=== PATIENT | male | born 1965 | race Caucasian/White ===

== ENCOUNTER 2016-11-02 19:00 | Inpatient (IN) ==
[2016-11-02] MEDS ORDERED: ONDANSETRON 4 MG/2 ML INJECTION IVP PRN (20:05)
[2016-11-02] MEDS ORDERED: BISACODYL 10 MG SUPPOSITORY RECTALLY PRN (20:05)
[2016-11-02] MEDS ORDERED: NICARDIPINE 50 MG in NS 500ml 500 ML IV PRN (20:14)
--- NOTE | 2016-11-02 20:19 | History & Physical Report ---
History of Present Illness Date: 11/02/16 Chief complaint: " feeling crapy for the past 2 weeks HPI: The pt is a 51 you with a long history of hypertension who has been feeling fatigued and weak. He has been having a dry cough for the past 3 days. Him and his if planning on going to [facility] for the next two weeks so his dragged him to his PCP, Dr. Cao today. In the office his BP was critically high with a systolic BP of >240 he was then admitted to the CCU for evaluation and treatment. Review of Systems - Constitutional Constitutional: Present: as per HPI, fatigue, malaise, night sweats. Absent: fever(s), headache(s) - EENMT Eyes: Absent: change in vision Mouth/Throat: Present: change in taste. Absent: dry mouth - Cardiovascular Cardiovascular: Present: dyspnea on exertion. Absent: chest pain, palpitations , syncope, orthopnea, edema - Respiratory Respiratory: Present: cough, dyspnea. Absent: hemoptysis, dyspnea on exertion, wheezing - Gastrointestinal Gastrointestinal: Absent: abdominal pain, change in bowel habits - Integumentary/Breasts Integumentary: Present: as per HPI - Neurological Neurological: Present: as per HPI - Psychiatric Psychiatric: Present: as per HPI PFSH Patient Stated Medical History Hypertension Yes Myocardial Infarction Yes: possible [place] 2011 Bronchitis Yes Diabetes Mellitus Type 2 Yes doesn't ever check his blood sugars, and never checks his BP at home. Does take several dietary supplements. last gb A1C was 7.2 in 2016 Surgical History: Tibial fracture and ankle with fixation - Social History Smoking status: Former smoker Alcohol intake: current Alcohol intake frequency: a few times a month Housing: house Household members: spouse service: No Current occupational status: employed Medications Home Medications Medication Instructions Recorded Confirmed Type Amlodipine Besylate 5 mg PO DAILY #0 tab 12/25/15 History BLACK CUMIN 1 cap PO DAILY #0 12/25/15 History [place] 1 cap PO DAILY #0 12/25/15 History Cinnamon Bark [Cinnamon] 1 cap PO DAILY #0 12/25/15 History FUNU KHMER 1 cap PO DAILY #0 12/25/15 History Flavoring Agent [Grapefruit] 1 unit PO DAILY #0 12/25/15 History GNC TESTOSTERONE 1 cap PO DAILY #0 12/25/15 History HGH SPRAY 1 unit PO ASD #0 12/25/15 History OAT FIBER 1 cap PO DAILY #0 12/25/15 History Oregano Oil [Oil of Oregano] 1 cap PO DAILY #0 12/25/15 History TRACE MINERAL DROPS 1 drop PO ASD #0 12/25/15 History Turmeric/Turmeric Root Extract 1 cap PO DAILY #0 12/25/15 History [Turmeric 450-50 mg Capsule] Allergies Allergy/AdvReac Type Severity Reaction Status Date / Time Penicillins Allergy Unknown Verified 11/02/16 19:32 Exam Height: 1.83 m Weight: 109.3 kg Body Mass Index: 32.6 - Constitutional Present: no acute distress - Routine HEENT Exam Head: Present: normocephalic - Routine Neck Exam Present: supple - Routine Respiratory Exam Present: CTA bilaterally - Routine Cardiovascular Exam Present: RRR, no murmur - Routine Abdominal Exam Present: soft - Routine Extremities Exam Present: edema, no edema, non tender - Routine Skin Exam Present: intact. Absent: rash - Routine Neurological Exam Present: alert, oriented X3 Assessment and Plan (1) Hypertensive urgency Current visit: Yes Status: Acute 11/02/16 20:24 Will start on cardene drip, admit to the ICU, close monitoring, cardiology consulted. checking labs now since none are available. low salt diet, telemetry , echo in am. (2) Diabetes Current visit: Yes Status: Acute 11/02/16 20:25 blood sugars presently is 340, will start on insulin SS, checking hgb A1C, accuchecks QAC & QHS, dabetes education, ADA diet. Hospital Course Summary Disclaimer: The visit summary below is not to be considered part of the above Progress Note.
[2016-11-02] MEDS ORDERED: DEXTROSE 50% SYRINGE 50ml (1 AMP) IVP PRN (20:27)
[2016-11-02] MEDS: ENOXAPARIN 40 MG/0.4 ML INJECTION SQ SCH (20:46)
[2016-11-02] MEDS: INSULIN ASPART 100unit/ml INJECTION SQ PRN (20:47)
[2016-11-02] MEDS ORDERED: NITROGLYCERIN 0.4 MG SUBLINGUAL TABLET SL PRN (21:07)
[2016-11-03] MEDS: INSULIN ASPART 100unit/ml INJECTION SQ PRN ×3 (06:31→21:58)
--- NOTE | 2016-11-03 08:14 | XRay Report ---
Indication: HTN, cough PROCEDURE: XR chest 1V: Encounter: Initial Comparison: None FINDINGS: The lungs are clear. There is no abnormal airspace opacity, pleural effusion or pneumothorax identified. The heart size, pulmonary vasculature and mediastinum are within normal limits. No significant skeletal abnormality is seen. IMPRESSION: No acute cardiopulmonary abnormality. .
[2016-11-03] MEDS: ENOXAPARIN 40 MG/0.4 ML INJECTION SQ SCH (09:15)
--- NOTE | 2016-11-03 10:31 | Cardiology Consult Note ---
History of Present Illness Consult date: 11/02/16 <JuanMarly 11/03/16 10:42> Requesting physician: Sylwia French <JuanMarly 11/03/16 10:42> Consult reason: hypertension <Marly Martinez 11/03/16 10:42> Chief complaint: feeling crappy the last 2 weeks <Juan,Amy Marquita 11/03/16 11 :32> History of present illness: William is a 51 year old male who is known to Dr. Hayward with a history of hypertension, HLD, DM who has been feeling fatigued and weak. He has been having a dry cough for the past 3 days. He and his if planning on going to [place] for the next two weeks so he saw his PCP, Dr. Luna and in the office his BP was critically high with a systolic BP of > 240. He was then admitted to the CCU for evaluation and treatment. <Marly Martinez 11/03/16 10:42> Review of Systems - Constitutional Constitutional: Present: as per HPI, fatigue, malaise, night sweats. Absent: fever(s), headache(s) <JuanMarly newby Marquita 11/03/16 10:42> - EENMT Eyes: Absent: change in vision <JuanMarly newby Marquita 11/03/16 10:42> Mouth/Throat: Present: change in taste. Absent: dry mouth <JuanMarly newby Marquita 11/03/16 10:42> - Cardiovascular Cardiovascular: Present: dyspnea on exertion. Absent: chest pain, palpitations , syncope, orthopnea, edema <Marly Martinez Marquita 11/03/16 10:42> - Respiratory Respiratory: Present: cough, dyspnea. Absent: hemoptysis, dyspnea on exertion, wheezing <Marly Martinez Marquita 11/03/16 10:42> - Gastrointestinal Gastrointestinal: Absent: abdominal pain, change in bowel habits <JuanMarly newby Marquita 11/03/16 10:42> - Integumentary/Breasts Integumentary: Present: as per HPI <Marly Martinez Marquita 11/03/16 10:42> - Neurological Neurological: Present: as per HPI <Marly Martinez Marquita 11/03/16 10:42> - Psychiatric Psychiatric: Present: as per HPI <Marly Martinez Marquita - 11/03/16 10:42> [facility] Patient Stated Medical History Hypertension Yes Myocardial Infarction No Bronchitis Yes Diabetes Mellitus Type 2 Yes <Wale Hayward - 11/05/16 17:19> Patient Stated Medical History Hypertension Yes Myocardial Infarction Yes: possible [place] 2011 Bronchitis Yes Diabetes Mellitus Type 2 Yes Hyperlipidemia Yes <JuanMarly henry 11/03/16 11:32> Surgical History: Tibial fracture and ankle with fixation <JuanMarly Marquita 10:42> Family History: Brother - CVA, DM Father - CVA <Marly Martinez 11/03/16 11:32> - Social History Smoking status: Former smoker <JuanMarly Marquita 11/03/16 10:42> Alcohol intake frequency: a few times a month <Marly Martinez Marquita 11/03/16 11:32 > Household members: spouse <JuanMarly Marquita 11/03/16 11:32> Current occupational status: employed <JuanMarly Marquita 11/03/16 11:32> Medications Home Medications Medication Instructions Recorded Confirmed Type BLACK CUMIN 1 cap PO DAILY #0 12/25/15 11/02/16 History [place] 1 cap PO DAILY #0 12/25/15 11/02/16 History Cinnamon Bark [Cinnamon] 1 cap PO DAILY #0 12/25/15 11/02/16 History Flavoring Agent [Grapefruit] 1 unit PO DAILY #0 12/25/15 11/02/16 History OAT FIBER 1 cap PO DAILY #0 12/25/15 11/02/16 History Oregano Oil [Oil of Oregano] 1 cap PO DAILY #0 12/25/15 11/02/16 History TRACE MINERAL DROPS 1 drop PO DAILY #0 12/25/15 11/02/16 History Turmeric/Turmeric Root Extract 1 cap PO DAILY #0 12/25/15 11/02/16 History [Turmeric 450-50 mg Capsule] Co Q-10 PO DAILY 11/02/16 History Lecithin/Pyridoxine/Kelp 1 each PO DAILY 11/02/16 11/02/16 History [Ngxz-[id number]-Gve B-6 Capsule] [place]-3 Fatty Acids [[place]-3] 1,000 mg PO DAILY 11/02/16 11/02/16 History Psyllium Husk PO DAILY 11/02/16 History Beet Root 605 mg PO QDRHS 11/03/16 History Dwt-Krw-Kude 1 tab PO DAILY 11/03/16 History [place] 450 mg PO DAILY 11/03/16 11/03/16 History Cinnamon Bark/Chromium/Ala 1 each PO DAILY 11/03/16 11/03/16 History [Cinnamon Alpha Lipoic Acid Cap] Fenugreek Seed Extract [Fenugreek] 500 mg PO DAILY 11/03/16 11/03/16 History Grape Fruit 1,000 mg PO DAILY 11/03/16 History Gtf Chromium 1 cap PO DAILY 11/03/16 History Kelp 1 tab PO DAILY 11/03/16 History Manganese 15 mg PO DAILY 11/03/16 History Mecobalamin [B-12] 1,000 mcg SL DAILY 11/03/16 11/03/16 History Oat Bran 750 mg PO DAILY 11/03/16 History Oil Of Oregano 150 mg PO DAILY 11/03/16 History Para-Aminobenzioc Acid 500 mg PO DAILY 11/03/16 History Psyllium Husk [Psyllium Fiber] 500 mg PO DAILY 11/03/16 11/03/16 History Pumpkin Seed Oil 1,000 mg PO DAILY 11/03/16 History Tumeric 300 mg PO DAILY 11/03/16 History Ubidecarenone/Vit E Acet [Co Q-10 100 mg PO QDRHS 11/03/16 11/03/16 History 100 mg Softgel] Ubiquinol 100 mg PO DAILY 11/03/16 11/03/16 History <Wale Hayward - 11/05/16 17:19> Allergies Allergy/AdvReac Type Severity Reaction Status Date / Time Penicillins Allergy Unknown Verified 11/02/16 19:32 <Wale Hayward - 11/05/16 17:19> Exam Vital signs: Temperature 96.6 F L 11/04/16 16:58 Pulse Rate 86 11/04/16 18:52 Respiratory Rate 38 H 11/04/16 18:52 Blood Pressure 143/89 H 11/04/16 19:16 Pulse Oximetry 97 11/04/16 18:52 Oxygen Delivery Method Room Air <Wale Hawyard - 11/05/16 17:19> Temperature 98.5 F 11/03/16 08:09 Pulse Rate 78 11/03/16 08:00 Respiratory Rate 25 H 11/03/16 08:00 Blood Pressure 179/111 H 11/03/16 08:00 Pulse Oximetry 93 11/03/16 08:00 Oxygen Delivery Method Room Air <Marly Martinez 11/03/16 10:42> - Constitutional no acute distress, well nourished <Marly Martinez 11/03/16 11:32> - Routine HEENT Exam ENT: Present: mucous membranes moist <Marly Martinez 11/03/16 11:32> - Routine Neck Exam Absent: JVD, carotid bruit <Marly Martinez 11/03/16 11:32> - Routine Chest/Breast/Axilla Exam Chest wall: Absent: tenderness <Marly Martinez [facility] 11/03/16 11:32> - Routine Respiratory Exam Present: CTA bilaterally. Absent: rales, wheezes <Marly Martinez [facility] 11/03/16 11:32> - Routine Cardiovascular Exam Present: RRR. Absent: JVD <Marly Martinez 11/03/16 11:32> - Routine Abdominal Exam Present: soft, non tender <Marly Martinez 11/03/16 11:32> - Routine Skin Exam Present: intact <Marly Martinez [facility] 11/03/16 11:32> - Routine Neurological Exam Present: alert, oriented X3 <Marly Martinez [facility] 11/03/16 11:32> - Routine Psychiatric Exam Present: normal affect, normal thought process <Marly Martinez [facility] 11/03/16 11: 32> Results 11/02/16 20:24 11/04/16 04:25 <Wale Hayward - 11/05/16 17:19> Cardiac Enzymes 11/02/16 11/03/16 11/03/16 Range/Units 20:20 01:40 07:44 AST 19 (17-59) U/L Troponin I 0.056 0.061 0.086 (0-0.12) ng/ml CBC 11/02/16 Range/Units 20:24 WBC 6.8 (4.5-11.0) T/MM3 RBC 5.63 (4.50-5.90) M/MM3 Hgb 16.0 (13.5-17.5) GM/DL Hct 47.2 (41-53) % Plt Count 199 (130-400) T/MM3 Neut # 4.2 (1.8-7.7) T/MM3 Lymph # 2.0 (1-4.8) T/MM3 [place] # 0.5 (0-0.8) T/MM3 Eos # 0.1 (0-0.5) T/MM3 Baso # 0.0 (0-0.2) T/MM3 Comprehensive Metabolic Panel 11/02/16 11/03/16 Range/Units 20:24 01:40 Sodium 139 143 (134-144) MEQ/L Potassium 4.5 3.3 L D (3.6-5) MEQ/L Chloride 101 103 (98-107) MEQ/L Carbon Dioxide 23 25 (22-30) MEQ/L BUN 21.0 H 17.0 (9-20) MG/DL Creatinine 1.1 0.9 D (0.8-1.5) MG/DL Glucose 419 H 121 H (75-110) MG/DL Calcium 9.3 8.9 (8.4-10.2) MG/DL AST 19 (17-59) U/L ALT 49 (21-72) U/L Alkaline Phosphatase 100 (38-126) U/L Total Protein 6.8 (6.3-8.2) G/DL Albumin 4.0 (3.5-5.0) G/DL Intake and Output 11/02/16 11/03/16 11/03/16 22:59 06:59 14:59 Intake Total 303.333 / 303.333 897.916 / 897.916 Output Total 1225 / 1225 1850 / 1850 Balance -921.667 / -921.667 -952.084 / -952.084 Intake: IV 63.333 / 63.333 247.916 / 247.916 Cardene IV 50 mg In 63.333 / 63.333 247.916 / 247.916 25 / 25 Normal Saline 500 ml @ 5 MG/HR 50 mls/hr IV .Q10H PRN Rx#:[id number] Oral 240 / 240 650 / 650 Output: Urine 1225 / 1225 1850 / 1850 Other: # Voids 0 0 Weight 240 lb 15.444 oz 263 lb 7.238 oz Patient Weight 11/04/16 06:59 Weight 263 lb 7.238 oz Laboratory Results - last 48 hr 11/02/16 11/02/16 11/02/16 20:16 20:20 20:24 WBC 6.8 RBC 5.63 Hgb 16.0 Hct 47.2 MCV 83.8 MCH 28.4 MCHC 33.9 RDW Std Deviation 44.3 Plt Count 199 MPV 10.7 Immature Gran % (Auto) 0.1 Neut % (Auto) 61.5 Lymph % (Auto) 29.3 [place] % (Auto) 6.7 Eos % (Auto) 1.8 Baso % (Auto) 0.6 Neut # 4.2 Lymph # 2.0 [place] # 0.5 Eos # 0.1 Baso # 0.0 Abs Immat Gran (auto) 0.01 INR Turbidity Sodium Potassium Chloride Carbon Dioxide Anion Gap BUN Creatinine GFR Calculation BUN/Creatinine Ratio Glucose Glucometer 347 Hemoglobin A1c Calculated Osmolality Calcium Magnesium Total Bilirubin Icterus Index AST ALT Alkaline Phosphatase Troponin I 0.056 Total Protein Albumin Globulin Albumin/Globulin Ratio TSH Specimen Hemolysis < 15 11/02/16 11/03/16 11/03/16 20:24 01:40 06:24 WBC RBC Hgb Hct MCV MCH MCHC RDW Std Deviation Plt Count MPV Immature Gran % (Auto) Neut % (Auto) Lymph % (Auto) [place] % (Auto) Eos % (Auto) Baso % (Auto) Neut # Lymph # [place] # Eos # Baso # Abs Immat Gran (auto) INR Turbidity < 20 < 20 Sodium 139 143 Potassium 4.5 3.3 L D Chloride 101 103 Carbon Dioxide 23 25 Anion Gap 15 15 BUN 21.0 H 17.0 Creatinine 1.1 0.9 D GFR Calculation 70 89 BUN/Creatinine Ratio 19 19 Glucose 419 H 121 H Glucometer 153 Hemoglobin A1c Calculated Osmolality 289 H 278 Calcium 9.3 8.9 Magnesium 2.0 Total Bilirubin 0.80 Icterus Index < 2 < 2 AST 19 ALT 49 Alkaline Phosphatase 100 Troponin I 0.061 Total Protein 6.8 Albumin 4.0 Globulin 2.8 Albumin/Globulin Ratio 1.4 TSH 2.20 Specimen Hemolysis < 15 < 15 11/03/16 11/03/16 11/03/16 07:44 07:44 10:31 WBC RBC Hgb Hct MCV MCH MCHC RDW Std Deviation Plt Count MPV Immature Gran % (Auto) Neut % (Auto) Lymph % (Auto) [place] % (Auto) Eos % (Auto) Baso % (Auto) Neut # Lymph # [place] # Eos # Baso # Abs Immat Gran (auto) INR 1.21 Turbidity Sodium Potassium Chloride Carbon Dioxide Anion Gap BUN Creatinine GFR Calculation BUN/Creatinine Ratio Glucose Glucometer 132 Hemoglobin A1c 10.4 H Calculated Osmolality Calcium Magnesium Total Bilirubin Icterus Index AST ALT Alkaline Phosphatase Troponin I 0.086 Total Protein Albumin Globulin Albumin/Globulin Ratio TSH Specimen Hemolysis < 15 <Marly Martinez - 11/03/16 11:32> - Imaging and Cardiology Echo: pending <Marly Martinez - 11/03/16 11:32> EKG results: image reviewed <Marly Martinez - 11/03/16 11:32> Imaging & Cardiology Narrative: Date of Exam: 11/03/16 Type of Exam(s): US echo doppler complete DATE OF PROCEDURE November 03, [address] Mainor Luna This is a two-dimensional echo with spectral Doppler, color-flow and M-mode. It was obtained in a patient with hypertensive urgency. Left atrial dimension is normal. Left ventricle end-diastolic dimension is normal. Left ventricle wall thickness is at the upper limits of normal. LV systolic function is at the lower limits of normal with ejection fraction of about 50-55%. Right atrium is normal. Right ventricle is normal. Aortic root dimension is normal. Mitral valve is morphologically normal with mild mitral regurgitation. Aortic valve appears to be normal. Tricuspid valve shows mild tricuspid regurgitation with normal estimated pulmonary artery systolic pressure of 30. Pulmonary valve shows trace of pulmonary insufficiency. There is no pericardial effusion. IMPRESSION 1. LV function at the lower limits of normal with ejection fraction of 50-55%. 2. Mild mitral regurgitation. 3. Mild tricuspid regurgitation with normal estimated pulmonary artery systolic pressure of 30. 4. Trace of pulmonary insufficiency. 11/03/16 16:24 <Marly Martinez - 11/03/16 16:26> Assessment and Plan (1) Hypertensive urgency Status: Acute (2) Diabetes Status: Chronic (3) Atherosclerotic heart disease of [place] coronary artery without angina pectoris Status: Chronic (4) Mixed hyperlipidemia Status: Chronic <Wale Hayward - 11/05/16 17:19> (1) Hypertensive urgency Status: Acute Has not been taking Amlodipine as directed. Restart Amlodipine at 10mg. Agree with Losartan 50mg daily (2) Atherosclerotic heart disease of [place] coronary artery without angina pectoris Status: Chronic See Echo report above. Plan NM cardiac stress test tomorrow morning (3) Diabetes Status: Chronic per attending (4) Mixed hyperlipidemia Status: Chronic Refuses to take Statins <Marly Martinez - 11/03/16 16:22> - Attestation Attestation Narrative: 11/05/16 17:19 Recommendation After examining the patient I agree with the above assessment. I am involved in the formulation of the patient's plan of care. <Wale Hayward - 11/05/16 17:19> Hospital Course Summary Disclaimer: The visit summary below is not to be considered part of the above Progress Note. <Wale Hayward - 11/05/16 17:19> The visit summary below is not to be considered part of the above Progress Note. <Marly Martinez - 11/03/16 10:42> Hospital Course: 11/03/16 16:25 HTN: Has not been taking Amlodipine as directed. Restart Amlodipine at 10mg. Agree with Losartan 50mg daily. CAD: See Echo report above. Plan NM cardiac stress test tomorrow morning. Thank you for allowing us to participate in the care of this patient. <Marly Martinez - 11/03/16 16:26> Sepsis Assessment - Evaluation Sepsis screening result: No Definite Risk <Marly Martinez - 11/03/16 10:42>
[2016-11-03] MEDS ORDERED: AMLODIPINE 5 MG TABLET PO SCH (11:30)
[2016-11-03] MEDS: LOSARTAN 50 MG TABLET PO SCH (13:23)
--- NOTE | 2016-11-03 15:47 | Progress Note ---
Progress Note: Mr. Hameed was admitted overnight with uncontrolled hypertension and diabetes. Nicardipine drip initiated. A1c 10.4. Amlodipine and losartan started orally today. Diabetic diet, monitor Accu-Cheks fasting and 2 hours after meals, corrective insulin. Diabetes education ordered; patient previously used insulin at home and indicated desire to return to insulin at discharge rather than metformin. Potassium supplemented earlier today. Cardiology consultation per Dr. Hayward. Please see full documentation in addendum to admission history.
[2016-11-03] MEDS ORDERED: AMLODIPINE 5 MG TABLET PO ONE (16:12)
--- NOTE | 2016-11-03 16:15 | Echocardiogram ---
DATE OF PROCEDURE November 03, [address] Mainor Luna This is a two-dimensional echo with spectral Doppler, color-flow and M-mode. It was obtained in a patient with hypertensive urgency. Left atrial dimension is normal. Left ventricle end-diastolic dimension is normal. Left ventricle wall thickness is at the upper limits of normal. LV systolic function is at the lower limits of normal with ejection fraction of about 50-55%. Right atrium is normal. Right ventricle is normal. Aortic root dimension is normal. Mitral valve is morphologically normal with mild mitral regurgitation. Aortic valve appears to be normal. Tricuspid valve shows mild tricuspid regurgitation with normal estimated pulmonary artery systolic pressure of 30. Pulmonary valve shows trace of pulmonary insufficiency. There is no pericardial effusion. IMPRESSION 1. LV function at the lower limits of normal with ejection fraction of 50-55%. 2. Mild mitral regurgitation. 3. Mild tricuspid regurgitation with normal estimated pulmonary artery systolic pressure of 30. 4. Trace of pulmonary insufficiency. MTDD
[2016-11-04] MEDS ORDERED: REGADENOSON 0.4 MG/5 ML INJECTION IVP ONE (06:44)
[2016-11-04] MEDS ORDERED: SALINE FLUSH 10ml SYRINGE ONE ×2 (06:45→15:41)
[2016-11-04] MEDS: LOSARTAN 50 MG TABLET PO SCH (08:42)
[2016-11-04] MEDS: ENOXAPARIN 40 MG/0.4 ML INJECTION SQ SCH (08:46)
[2016-11-04] MEDS ORDERED: AMLODIPINE 5 MG TABLET PO SCH (09:00)
[2016-11-04] MEDS ORDERED: HYDRALAZINE 20 MG/ML INJECTION IVP ONE ×2 (09:43→11:36)
[2016-11-04] MEDS: INSULIN ASPART 100unit/ml INJECTION SQ PRN ×2 (10:20→15:39)
[2016-11-04] MEDS ORDERED: LOSARTAN 50 MG TABLET PO ONE ×2 (12:00→18:00)
[2016-11-04] MEDS ORDERED: NS 1,000 ML IV SCH (13:30)
[2016-11-04] MEDS ORDERED: SALINE FLUSH 10ml SYRINGE IV PRN (14:36)
[2016-11-04] MEDS ORDERED: HYDRALAZINE 20 MG/ML INJECTION IVP PRN (14:47)
--- NOTE | 2016-11-04 14:49 | Pharmacologic Nuc Stress Test ---
DATE OF PROCEDURE November 04, [address] Sylwia French INDICATION Shortness of breath and multiple risk factors for coronary artery disease. PROCEDURE 1. Treadmill Myoview. IMPRESSION 1. Baseline EKG showed sinus rhythm with anterior wall NV. 2. He walked a total of 6 minutes and 30 seconds into stage 3 of Coy protocol. 3. 85% predicted maximal heart rate was exceeded. 4. Hemodynamic response to exercise was appropriate. 5. He reported no angina. 6. 12.7 mCi of Myoview was given for rest images and 34.9 mCi for stress images. 7. There were no ischemic EKG changes. 8. There were no arrhythmias. 9. Nuclear perfusion images revealed apical and anteroapical scar. 10. Quantitative ejection fraction is measured at 29%. MTDD
[2016-11-04] MEDS ORDERED: INSULIN ASPART 100unit/ml INJECTION SQ SCH ×2 (15:00→17:30)
[2016-11-04] MEDS ORDERED: FentaNYL 100 MCG/2 ML INJECTION ONE (15:40)
[2016-11-04] MEDS ORDERED: NITROGLYCERIN 50MG INJECTION IV ONE (15:41)
[2016-11-04] MEDS ORDERED: HEPARIN 1,000 UNIT/ML INJECTION 10ml ONE (15:41)
[2016-11-04] MEDS ORDERED: VERAPAMIL 5 MG/2 ML VIAL ONE (15:41)
[2016-11-04] MEDS ORDERED: MIDAZOLAM 2mg/2ml INJECTION ONE (15:41)
[2016-11-04] MEDS ORDERED: HEPARIN 1,000 UNITS/500 ML PREMIX (*CVL ONLY*) IV ONE (15:42)
[2016-11-04] MEDS ORDERED: LIDOCAINE 1% (10mg/ml) 30ml SDV INJ ONE (15:42)
[2016-11-04] MEDS ORDERED: IOHEXOL 350mg/ml 200ml BOTTLE ONE (15:42)
--- NOTE | 2016-11-04 16:09 | Progress Note ---
Subjective: William was seen this morning at which time he reported having an uneventful night. He felt that his blood sugar was elevated when I saw him and consequently he was feeling somewhat short of breath. He denied dyspnea overnight and has had no chest pain, nausea, lightheadedness, or difficulty voiding. His appetite is good. He again indicated intent to discharge home later today so he can complete work and go on vacation as originally scheduled. Blood pressures been elevated overnight requiring IV hydralazine just before I arrived. Objective Vital signs: Temperature 96.6 F L 11/04/16 12:01 Pulse Rate 87 11/04/16 12:01 Respiratory Rate 33 H 11/04/16 12:01 Blood Pressure 184/119 H 11/04/16 12:01 Pulse Oximetry 98 11/04/16 12:01 Oxygen Delivery Method Room Air EXAM General-NAD, alert, fluent speech HEENT-conjunctiva clear, oropharynx clear Lungs-respirations nonlabored, good airflow, breath sounds clear anteriorly/ upper posterior delgadillo Cardiac-regular rhythm, S1-S2 Abd-soft, nontender, bowel sounds present Ext-without edema Neuro-moving extremities spontaneously/fluid movements Psych-calm, cooperative - Height: 21.95 m Weight: 119.295 kg Results - Labs CBC & Chem 7: 11/02/16 20:24 11/04/16 04:25 - Imaging and Cardiology Abdominal x-ray Additional comments: Thallium stress test demonstrated ejection fraction 29% and apical/anteroapical scar. Echo with ejection fraction 50-55%, trace MR, trace TR, PA pressure 30. Assessment and Plan (1) Hypertensive urgency Current visit: Yes Status: Acute (2) Diabetes Current visit: Yes Status: Chronic (3) Hypokalemia Current visit: Yes Status: Acute (4) CKD (chronic kidney disease) stage 2, GFR 60-89 ml/min Current visit: Yes Status: Chronic (5) Atherosclerotic heart disease of [place] coronary artery without angina pectoris Current visit: Yes Status: Chronic (6) Mixed hyperlipidemia Current visit: Yes Status: Chronic Assessment and Plan: Nicardipine drip discontinued yesterday after initiation of oral medications with amlodipine/losartan. Blood pressure remains elevated-amlodipine increased to 10 mg daily, losartan to be increased to 100 mg daily. Hydralazine 10-20 mg IV when necessary for systolic pressures greater than 190. Blood sugar control improved but patient reports little oral intake yesterday. Scheduled insulin initiated-3 units NovoLog 3 times a day with meals; patient not interested in starting long-acting insulin in conjunction. Dietary changes discussed with patient who reports diet recently has been awful and he attributes deterioration in blood sugar control to lifestyle changes recently. Discussed with Dr. Hayward-cardiac catheterization planned this afternoon, patient agreeable to delay discharge plans for heart catheter. Hypokalemia corrected with replacement yesterday. Renal function stable. Discussed with Dr. Hayward several times, thallium discussed/reviewed with cardiology, echocardiogram reviewed, laboratory data reviewed. Remains at high risk due to uncontrolled blood pressure. Sepsis Assessment - Evaluation Sepsis screening result: No Definite Risk Hospital Course Summary Disclaimer: The visit summary below is not to be considered part of the above Progress Note. Hospital Course: 11/02-11/03 Patient admitted with uncontrolled blood pressure/hypertensive urgency after office visit at which time systolic blood pressure >240. Nicardipine drip initiated, converted to oral medications on 11/03. Additionally found to have marked hyperglycemia with admission blood sugar of 419. Known history of diabetes. A1c 10.4-corrective insulin initiated with plans to convert to scheduled insulin after sensitivity established. 11/03/16 16:25 HTN: Has not been taking Amlodipine as directed. Restart Amlodipine at 10mg. Agree with Losartan 50mg daily. CAD: See Echo report above. Plan NM cardiac stress test tomorrow morning. Thank you for allowing us to participate in the care of this patient. 11/04/16 16:21 Nicardipine drip discontinued yesterday after initiation of oral medications with amlodipine/losartan. Blood pressure remains elevated-amlodipine increased to 10 mg daily, losartan to be increased to 100 mg daily. Hydralazine 10-20 mg IV when necessary for systolic pressures greater than 190. Blood sugar control improved but patient reports little oral intake yesterday. Scheduled insulin initiated-3 units NovoLog 3 times a day with meals; patient not interested in starting long-acting insulin in conjunction. Dietary changes discussed with patient who reports diet recently has been awful and he attributes deterioration in blood sugar control to lifestyle changes recently. Discussed with Dr. Hayward-cardiac catheterization planned this afternoon, patient agreeable to delay discharge plans for heart catheter. Hypokalemia corrected with replacement yesterday. Renal function stable.
[2016-11-04] MEDS ORDERED: BISACODYL 10 MG SUPPOSITORY RECTALLY PRN (16:43)
[2016-11-04] MEDS ORDERED: ATROPINE 1 MG/ML INJECTION IVP PRN (16:43)
[2016-11-04] MEDS ORDERED: NITROGLYCERIN 0.4 MG SUBLINGUAL TABLET SL PRN (16:43)
[2016-11-04] MEDS ORDERED: BISACODYL E.C. 5 MG TABLET PO PRN (16:43)
[2016-11-04] MEDS ORDERED: MAG-AL + SIM ORAL LIQUID 30ml PO PRN (16:43)
[2016-11-04] MEDS ORDERED: ONDANSETRON 4 MG/2 ML INJECTION IVP PRN (16:43)
[2016-11-04] MEDS ORDERED: PROMETHAZINE 25 MG INJECTION IVP PRN (16:43)
[2016-11-04] MEDS ORDERED: MORPHINE SULFATE 4 MG SYRINGE IVP PRN ×2 (16:43)
[2016-11-04] MEDS ORDERED: METOCLOPRAMIDE 10mg/2ml INJECTION IVP PRN (16:43)
[2016-11-04] MEDS ORDERED: ACETAMINOPHEN 325 MG TABLET PO PRN (16:43)
[2016-11-04] MEDS ORDERED: LORazepam 0.5 MG TABLET PO PRN (16:43)
[2016-11-04] MEDS ORDERED: HYDROCODONE/APAP 5mg/325mg TABLET PO PRN (16:43)
--- NOTE | 2016-11-04 17:03 | Discharge Summary ---
Discharge Plan - Med Rec/Dispo Referrals/Follow Up: Wlae Hayward MD [Physician] - Additional Instructions: Limit activity for 2 days. No lifting more than 10 pounds, no pushing or pulling for [address], operate machinery or drink alcohol for 2 days. Remove dressing after 24 hours. Keep site clean and dry. No tub baths or swimming for 1 week. You may shower. Expect bruising and tenderness at the site. New prescriptions: Amlodipine 10mg by mouth daily. Losartan 100mg by mouth daily. Coreg 3.125mg by mouth every morning and evening. Aspirin 81mg by mouth daily. Prescriptions: No Action Cinnamon Bark [Cinnamon] 1 cap PO DAILY #0 [place] 1 cap PO DAILY #0 Turmeric/Turmeric Root Extract [Turmeric 450-50 mg Capsule] 1 cap PO DAILY # 0 BLACK CUMIN 1 cap PO DAILY #0 Flavoring Agent [Grapefruit] 1 unit PO DAILY #0 OAT FIBER 1 cap PO DAILY #0 TRACE MINERAL DROPS 1 drop PO DAILY #0 Lecithin/Pyridoxine/Kelp [Ecbg-Juajsppf-Ovs B-6 Capsule] 1 each PO DAILY [place]-3 Fatty Acids [[place]-3] 1,000 mg PO DAILY Psyllium Husk [Psyllium Husk] PO DAILY Beet Root 605 mg PO QDRHS Grape Fruit 1,000 mg PO DAILY Pumpkin Seed Oil 1,000 mg PO DAILY Para-Aminobenzioc Acid 500 mg PO DAILY Mecobalamin [B-12] 1,000 mcg SL DAILY [place] 450 mg PO DAILY Cinnamon Bark/Chromium/Ala [Cinnamon Alpha Lipoic Acid Cap] 1 each PO DAILY Fenugreek Seed Extract [Fenugreek] 500 mg PO DAILY Oat Bran 750 mg PO DAILY Oregano Oil [Oil of Oregano] 1 cap PO DAILY #0 Amlodipine [Norvasc] 5 mg PO DAILY Co Q-10 PO DAILY Ubidecarenone/Vit E Acet [Co Q-10 100 mg Softgel] 100 mg PO QDRHS Psyllium Husk [Psyllium Fiber] 500 mg PO DAILY Tumeric 300 mg PO DAILY Ubiquinol 100 mg PO DAILY Osn-Dxe-Fqsq 1 tab PO DAILY Oil Of Oregano 150 mg PO DAILY Kelp 1 tab PO DAILY Manganese 15 mg PO DAILY Gtf Chromium 1 cap PO DAILY - Disposition 01 Discharged Home, Self-Care
[2016-11-04] MEDS ORDERED: CARVEDILOL 3.125 MG TABLET PO SCH (17:30)
--- NOTE | 2016-11-04 18:35 | Discharge Summary ---
Discharge Plan - Med Rec/Dispo Referrals/Follow Up: Wale Hayward MD [Physician] - Mainor Luna MD [Family Provider] - 2 Weeks Dorys Instructions: [facility] Heart Cath Trans Rad, Coronary Artery Disease (DC), Heart Healthy Diet (DC), Type 2 Diabetes in Adults (DC), Hypertension (DC) Additional Instructions: Limit activity for 2 days. No lifting more than 10 pounds, no pushing or pulling for [address], operate machinery or drink alcohol for 2 days. Remove dressing after 24 hours. Keep site clean and dry. No tub baths or swimming for 1 week. You may shower. Expect bruising and tenderness at the site. New prescriptions: Amlodipine 10mg by mouth daily. Losartan 100mg by mouth daily. Coreg 3.125mg by mouth every morning and evening. Aspirin 81mg by mouth daily. Prescriptions: New Amlodipine [Norvasc] 10 mg PO DAILY #30 tab Carvedilol [Coreg] 3.125 mg PO BIDWM #60 tablet Losartan [Cozaar] 100 mg PO DAILY #30 tablet Nitroglycerin [Nitrostat] 0.4 mg SL Q5MIN3 PRN #25 tablet PRN Reason: Chest Pain Acetaminophen [Tylenol] 325 - 650 mg PO Q5H PRN tablet PRN Reason: Pain Aspirin *EC* [Ecotrin] 81 mg PO DAILY tablet Insulin Aspart [NovoLOG] 4 unit SQ TIDWM #1 vial Continue [place]-3 Fatty Acids [[place]-3] 1,000 mg PO DAILY Psyllium Husk PO DAILY Discontinued Amlodipine [Norvasc] 5 mg PO DAILY No Action Cinnamon Bark [Cinnamon] 1 cap PO DAILY #0 [place] 1 cap PO DAILY #0 Turmeric/Turmeric Root Extract [Turmeric 450-50 mg Capsule] 1 cap PO DAILY # 0 BLACK CUMIN 1 cap PO DAILY #0 Flavoring Agent [Grapefruit] 1 unit PO DAILY #0 OAT FIBER 1 cap PO DAILY #0 TRACE MINERAL DROPS 1 drop PO DAILY #0 Lecithin/Pyridoxine/Kelp [Ozqu-Prinatwe-Ogd B-6 Capsule] 1 each PO DAILY Beet Root 605 mg PO QDRHS Grape Fruit 1,000 mg PO DAILY Pumpkin Seed Oil 1,000 mg PO DAILY Para-Aminobenzioc Acid 500 mg PO DAILY Mecobalamin [B-12] 1,000 mcg SL DAILY [place] 450 mg PO DAILY Cinnamon Bark/Chromium/Ala [Cinnamon Alpha Lipoic Acid Cap] 1 each PO DAILY Fenugreek Seed Extract [Fenugreek] 500 mg PO DAILY Oat Bran 750 mg PO DAILY Oregano Oil [Oil of Oregano] 1 cap PO DAILY #0 Co Q-10 PO DAILY Ubidecarenone/Vit E Acet [Co Q-10 100 mg Softgel] 100 mg PO QDRHS Psyllium Husk [Psyllium Fiber] 500 mg PO DAILY Tumeric 300 mg PO DAILY Ubiquinol 100 mg PO DAILY Coh-Ind-Dsgo 1 tab PO DAILY Oil Of Oregano 150 mg PO DAILY Kelp 1 tab PO DAILY Manganese 15 mg PO DAILY Gtf Chromium 1 cap PO DAILY Discharge Instructions/Outpatient Orders: Final Provider Discharge Instructions Location: Determined By Patient - Disposition 01 Discharged Home, Self-Care
--- NOTE | 2016-11-04 20:08 | Discharge Summary ---
Discharge Information Date of admission: 11/02/16 19:02 Anticipated date of discharge: 11/04/16 Attending Physician: Sylwia French MD Primary care physician: Mainor Luna MD Consults: Wale Hayward - Discharge Diagnosis (1) Hypertensive urgency Status: Acute (2) Diabetes Qualifiers: Diabetes mellitus type: type 2 Diabetes mellitus complication status: with kidney complications Diabetes mellitus complication detail: with chronic kidney disease Diabetes mellitus longterm insulin use: without vermin exterminator use Status: Chronic (3) Atherosclerotic heart disease of [place] coronary artery without angina pectoris Qualifiers: [place] vs. transplanted heart: [place] heart Qualified Code(s): I25.10 - Atherosclerotic heart disease of [place] coronary artery without angina pectoris Status: Chronic (4) CKD (chronic kidney disease) stage 2, GFR 60-89 ml/min Status: Chronic (5) Mixed hyperlipidemia Status: Chronic (6) Hypokalemia Status: Resolved - Procedures Procedures: Echocardiogram on 11/03/16: 1. LV function at the lower limits of normal with ejection fraction of 50-55%. 2. Mild mitral regurgitation. 3. Mild tricuspid regurgitation with normal estimated pulmonary artery systolic pressure of 30. 4. Trace of pulmonary insufficiency. Myocardial perfusion stress test on 11/04/16: 1. Baseline EKG showed sinus rhythm with anterior wall MO. 2. He walked a total of 6 minutes and 30 seconds into stage 3 of Coy protocol. 3. 85% predicted maximal heart rate was exceeded. 4. Hemodynamic response to exercise was appropriate. 5. He reported no angina. 6. 12.7 mCi of Myoview was given for rest images and 34.9 mCi for stress images. 7. There were no ischemic EKG changes. 8. There were no arrhythmias. 9. Nuclear perfusion images revealed apical and anteroapical scar. 10. Quantitative ejection fraction is measured at 29%. Cardiac catheterization on 11/04/16: Final report pending-per preliminary verbal report patient has multi-vessel disease, small arteries not amenable to bypass. Anterior wall akinesis. - Laboratory Labs: Troponin 0.056-0.061-0.086-0.073 A1c 10.4 and TSH 2.2 on 11/03/16 11/02/16 20:24 11/04/16 04:25 - Radiology Radiology: Chest x-ray on admission demonstrated no acute cardiopulmonary disease. History of Present Illness HPI: The pt is a 51 you with a long history of hypertension who has been feeling fatigued and weak. He has been having a dry cough for the past 3 days. Him and his if planning on going to [place] for the next two weeks so his dragged him to his PCP, Dr. Luna today. In the office his BP was critically high with a systolic BP of >240 he was then admitted to the CCU for evaluation and treatment. Hospital Course This is a general summary of the patient's hospital course. For more details refer to the complete medical record. Hospital course: Patient admitted with uncontrolled blood pressure/hypertensive urgency after office visit at which time systolic blood pressure >240. On admission the patient's blood pressure was 202/139. Nicardipine drip initiated on admission converting to oral medications on 11/03 with amlodipine and losartan. Doses were increased within 24 hours to amlodipine 10 mg daily and losartan 100 mg daily. Blood pressures remained labile and several doses of hydralazine were given for uncontrolled hypertension. Low-dose carvedilol was added to the regimen prior to discharge although was initiated primarily due to identification of extensive coronary artery disease. Blood pressure prior to discharge was 143/89. The patient was seen in consultation by Dr. Hayward. Echocardiogram was obtained with findings as noted. Troponins were modestly elevated without acute EKG changes although EKG suggested old anterior and possibly inferior MO. Myocardial perfusion stress test was obtained on the morning of 12/04 demonstrated significant abnormality prompting decision to proceed with cardiac catheterization later in the day. Formal report is pending but verbal report indicates significant three-vessel disease and depressed ejection fraction. Vessels were not felt amenable to bypass and management options will be reviewed further at office follow-up. The patient is discharged on beta pritesh , aspirin, and ARB. He indicated earlier in hospitalization that he would not take a statin and this was not readdressed prior to discharge. On admission Mr. Hameed was found to have marked hyperglycemia with admission blood sugar of 419. He has a known history of diabetes and A1c was elevated at 10.4. Treatment was initiated with corrective insulin and subsequently converted to scheduled insulin after sensitivity was established. Patient was reluctant to consider long-acting insulin and subsequently is discharged on NovoLog 4 units 3 times daily with meals. He acknowledged that he has had poor dietary habits recently and reported that he previously was able to control diabetes by making significant dietary changes in conjunction with weight loss. Potassium was incidentally noted to be low on his second hospital day and was replaced orally with correction. Patient was felt stable for discharge following initial recovery from cardiac catheterization on 11/04. He is planning a vacation in [place] and is advised to schedule follow-up appointments with both Dr. Lindquist and Dr. Hayward immediately after return. Prescriptions for carvedilol, amlodipine, losartan, NovoLog, and Nitrostat were provided to the patient prior to discharge. Dietary modifications were reviewed during hospitalization. >30 minutes spent on patient care and discharge care coordination today on the date of discharge. -- Discharge Plan - Med Rec/Dispo Referrals/Follow Up: Wale Hayward MD [Physician] - Mainor Luna MD [Family Provider] - 2 Weeks Dorys [place] [facility] [place], Coronary Artery Disease ([place]), Heart Healthy Diet ([place]), Type 2 Diabetes in Adults ([place]), Hypertension ([place]) Additional Instructions: Limit activity for 2 days. No lifting more than 10 pounds, no pushing or pulling for [address], operate machinery or drink alcohol for 2 days. Remove dressing after 24 hours. Keep site clean and dry. No tub baths or swimming for 1 week. You may shower. Expect bruising and tenderness at the site. New prescriptions: Amlodipine 10mg by mouth daily. Losartan 100mg by mouth daily. Coreg 3.125mg by mouth every morning and evening. Aspirin 81mg by mouth daily. Prescriptions: New Amlodipine [Norvasc] 10 mg PO DAILY #30 tab Carvedilol [Coreg] 3.125 mg PO BIDWM #60 tablet Losartan [Cozaar] 100 mg PO DAILY #30 tablet Nitroglycerin [Nitrostat] 0.4 mg SL Q5MIN3 PRN #25 tablet PRN Reason: Chest Pain Acetaminophen [Tylenol] 325 - 650 mg PO Q5H PRN tablet PRN Reason: Pain Aspirin *EC* [Ecotrin] 81 mg PO DAILY tablet Insulin Aspart [NovoLOG] 4 unit SQ TIDWM #1 vial Continue [place]-3 Fatty Acids [[place]-3] 1,000 mg PO DAILY Psyllium Husk PO DAILY Discontinued Amlodipine [Norvasc] 5 mg PO DAILY No Action Cinnamon Bark [Cinnamon] 1 cap PO DAILY #0 [place] 1 cap PO DAILY #0 Turmeric/Turmeric Root Extract [Turmeric 450-50 mg Capsule] 1 cap PO DAILY # 0 BLACK CUMIN 1 cap PO DAILY #0 Flavoring Agent [Grapefruit] 1 unit PO DAILY #0 OAT FIBER 1 cap PO DAILY #0 TRACE MINERAL DROPS 1 drop PO DAILY #0 Lecithin/Pyridoxine/Kelp [Htzt-Ywzedvay-Hil B-6 Capsule] 1 each PO DAILY Beet Root 605 mg PO QDRHS Grape Fruit 1,000 mg PO DAILY Pumpkin Seed Oil 1,000 mg PO DAILY Para-Aminobenzioc Acid 500 mg PO DAILY Mecobalamin [B-12] 1,000 mcg SL DAILY [place] 450 mg PO DAILY Cinnamon Bark/Chromium/Ala [Cinnamon Alpha Lipoic Acid Cap] 1 each PO DAILY Fenugreek Seed Extract [Fenugreek] 500 mg PO DAILY Oat Bran 750 mg PO DAILY Oregano Oil [Oil of Oregano] 1 cap PO DAILY #0 Co Q-10 PO DAILY Ubidecarenone/Vit E Acet [Co Q-10 100 mg Softgel] 100 mg PO QDRHS Psyllium Husk [Psyllium Fiber] 500 mg PO DAILY Tumeric 300 mg PO DAILY Ubiquinol 100 mg PO DAILY Nga-She-Jkse 1 tab PO DAILY Oil Of Oregano 150 mg PO DAILY Kelp 1 tab PO DAILY Manganese 15 mg PO DAILY Gtf Chromium 1 cap PO DAILY Discharge Instructions/Outpatient Orders: Final Provider Discharge Instructions Location: Determined By Patient - Disposition 01 Discharged Home, Self-Care
[2016-11-05] MEDS ORDERED: AMLODIPINE 5 MG TABLET PO SCH (09:00)
[2016-11-05] MEDS ORDERED: ASPIRIN *EC* 81 MG TABLET PO SCH (09:00)
[2016-11-05] MEDS ORDERED: LOSARTAN 100 MG TABLET PO SCH (09:00)
--- NOTE | 2016-11-05 10:25 | Cardiac Catheterization Report ---
DATE OF PROCEDURE November 04, 2016 INDICATIONS Patient is a pleasant 51-year-old gentleman who was admitted with hypertensive urgency and complaining of increasing shortness of breath and multiple risk factors for coronary artery disease and a stress test was performed which was abnormal and was referred for further evaluation by cardiac catheterization and possible intervention. INFORMED CONSENT Informed consent was obtained after explaining the procedure and the potential risks to the patient who agreed to proceed with the procedure. PROCEDURE 1. Left heart catheterization. 2. Coronary angiography. 3. Left ventriculography. TECHNIQUE He was prepped and draped in the usual sterile techniques. Conscious sedation was performed using Versed and fentanyl. 1% lidocaine was used for local anesthesia. Using modified Seldinger technique, arterial access was obtained into the right radial artery with placement of a 6-[place] arterial sheath. 3000 units of heparin, 300 mcg of nitroglycerin, and 2.5 mg of verapamil were given through the arterial sheath. LEFT VENTRICULOGRAPHY. Left ventriculography in single-plane WEEMS shallow projection showed dilated left ventricle with large anterior apical akinesia with ejection fraction of about 30% with no mitral regurgitation or gradient across the aortic valve. LVEDP was about 6. CORONARY ANGIOGRAPHY Left main was free of significant lesions. Left anterior descending artery had about 30% stenosis in proximal segment. At the junction of the mid and distal third of the vessel, LAD had about 80% stenosis. Just distal to this lesion at the apex, it was occluded with late filling of the apical LAD. Diagonals were small with one diagonal occluded. The remaining diagonals had diffuse disease of up to about 60%. Ramus intermedius was large with proximal stenosis and the tightest lesion was about 80% in proximal segment. Left circumflex artery was a medium caliber vessel with 80% proximal stenosis and diffuse disease distally. Right coronary artery was patent with diffuse disease of up to about 20-30%. Posterolateral artery had about 90% diffuse distal stenosis. The patient tolerated the procedure well with no complications. IMPRESSION 1. Multiple severe distal coronary artery disease as described above. 2. Wall motion abnormalities and LV dysfunction with ejection fraction of about 30%. PLAN The patient has poor targets for coronary artery bypass graft and therefore will not refer the patient to coronary artery bypass graft. Will continue medical management for now. One might consider percutaneous intervention on the ramus intermedius and left circumflex in different setting. However, there is a question about compliance of the patient and therefore we did not wish to proceed with intervention at this time since I am not sure that he will be compliant enough to take his dual antiplatelet therapy. Will discuss the findings with the patient and family for further management. BRIAN
== END 2016-11-04 19:40 | disposition home or self-care (01) | DRG 287 ==
LOC: CCU 19:02 → PREOBSVTOIN 19:02
PROVIDERS: ADMIT Internal Medicine; ATTEND Internal Medicine